=== PATIENT | female | born 1965 | race Caucasian/White ===

== ENCOUNTER 2016-07-23 14:19 | Emergency (ER) | payer BC ==
[~2016-07-23] VITALS: Ht 165.1 cm; Wt 81.6 kg
[2016-07-23] MEDS ORDERED: BUPR300T34 (14:31)
[2016-07-23] MEDS ORDERED: LISI-538 (14:31)
[2016-07-23] MEDS ORDERED: ADDE5TAB5 PO (14:31)
[2016-07-23] MEDS ORDERED: ALPR0.25 (14:31)
[2016-07-23] MEDS ORDERED: PANTOPRAZOLE 40MG INJ (PROTONIX) (C9113) IV ONE (15:00)
[2016-07-23] MEDS ORDERED: NS 1,000 ML IV ONE (15:00)
[2016-07-23] MEDS ORDERED: KETOROLAC 30 MG/ML VIAL (J1885) IV ONE (15:00)
[2016-07-23] MEDS ORDERED: ONDANSETRON 4MG/2ML VIAL (J2405) IV ONE (15:00)
[2016-07-23 15:31] LABS: BASO % 0.2 % (0.0-1.0); EOS # 0.2 K/mm3 (0.0-0.50); EOS % 1.4 % (0.0-3.0); LARGE UNSTAINED CELL # 0.1 K/mm3 (0.0-0.4); LARGE UNSTAINED CELL % 0.5 % (0.0-4.0); LYMPH # 1.4 K/mm3 (1.5-4.5); LYMPH % 9.6 % (24.0-44.0); MEAN CORPUSCULAR HEMOGLOBIN 29.5 pg (27.0-33.0); MEAN CORPUSCULAR VOLUME 84.3 fl (80.0-96.0); MONO # 0.5 K/mm3 (0.0-0.8); MONO % 3.5 % (0.0-5.0); NEUTROPHILS # 11.7 K/mm3 (1.8-7.7); NEUTROPHILS % 84.9 % (36.0-66.0); PLATELET COUNT, AUTOMATED 261 k/mm3 (150-450); RED CELL DISTRIBUTION WIDTH 12.8 % (11.5-14.5); WHITE BLOOD COUNT 13.8 K/mm3 (4.0-10.0)
[2016-07-23 15:48] LABS: ALBUMIN 4.1 GM/DL (3.2-5.2); ALBUMIN/GLOBULIN RATIO 1.08 (1.00-1.93); ALKALINE PHOSPHATASE 102 U/L (45-117); ALT/SGPT 24 U/L (12-78); ANION GAP 9 MEQ/L (8-16); AST/SGOT 10 U/L (15-37); BILIRUBIN,DIRECT 0.1 MG/DL (0.0-0.2); BILIRUBIN,TOTAL 0.5 MG/DL (0.2-1.0); BLOOD UREA NITROGEN 10 MG/DL (7-18); CALCIUM LEVEL 9.3 MG/DL (8.5-10.1); CARBON DIOXIDE LEVEL 25 MEQ/L (21-32); CHLORIDE LEVEL 103 MEQ/L (98-107); CREATININE FOR GFR 0.82 MG/DL (0.55-1.02); GLOMERULAR FILTRATION RATE > 60.0 (>51); GLUCOSE, FASTING 115 MG/DL (70-105); POTASSIUM SERUM 3.7 MEQ/L (3.5-5.1); SODIUM LEVEL 137 MEQ/L (136-145); TOTAL PROTEIN 7.9 GM/DL (6.4-8.2)
[2016-07-23] MEDS ORDERED: ISOVUE-370 76% 100ML VIAL (Q9967) As Ordered ONE (15:57)
[2016-07-23] MEDS ORDERED: CIPROFLOXACIN 400 MG in APPROPRIATE DILUENT 1 EA IV ONE (16:00)
--- NOTE | 2016-07-23 16:27 | REP ---
Clinical: Lower abdominal pain with vomiting. Technique: Axial contrast enhanced images from the lung bases to the pubic symphysis using 100 ml Isovue 370 intravenous contrast material with coronal and sagittal re-formations. Comparison: 10/02/2015. Findings: Mural thickening and pericolonic inflammatory stranding is appreciated involving predominantly the transverse through descending colon and most compatible with an infectious/inflammatory colitis. The small bowel appears normal. There is no evidence for bowel obstruction, free air to suggest perforation, or drainable collection/abscess. Liver, spleen, pancreas, gallbladder, bilateral adrenal glands and kidneys are normal. Pelvis demonstrates partially collapsed normal bladder and age-appropriate uterus/adnexa. No pelvic fluid. No significant adenopathy. Atherosclerotic changes of the aorta noted without aneurysm or dissection. Musculoskeletal structures demonstrate age-related changes. Lung bases clear. Impression: Findings most compatible with infectious/inflammatory colitis involving the transverse through descending colon. Signed by Esdras Colon MD 07/23/2016 04:19 P
[2016-07-23] MEDS ORDERED: BENT20TA PO (16:29)
[2016-07-23] MEDS ORDERED: FLAG500T PO (16:29)
[2016-07-23] MEDS ORDERED: CIPR500T89 PO (16:29)
[2016-07-23] MEDS ORDERED: metroNIDAZOLE (FLAGYL) 500 MG TAB PO ONE (16:30)
[2016-07-23] MEDS ORDERED: DICYCLOMINE 10 MG CAP PO ONE (16:30)
[2016-07-23 17:25] VITALS: BP 145/97
== END 2016-07-23 17:26 | disposition home or self-care (01) ==
LOC: M ED 15:16
DX: K52.9 Noninfective gastroenteritis and colitis, unspecified (principal); K57.30 Diverticulosis of large intestine without perforation or abscess without bleeding; I10 Essential (primary) hypertension; F32.9 Major depressive disorder, single episode, unspecified; F41.9 Anxiety disorder, unspecified; F17.200 Nicotine dependence, unspecified, uncomplicated; Z79.899 Other long term (current) drug therapy; Z91.040 Latex allergy status
CPT/HCPCS: 74177; 80048; 80076; 81001; 83690; 85025; 96374; 96375; 99283; C9113; J0744; J1885; J2405; Q9967

== ENCOUNTER → 2017-09-13 | Outpatient (CLI) | payer BC ==
[2017-09-13 09:44] LABS: BASO % 0.4 % (0.0-1.0); EOS # 0.2 10^3/uL (0.0-0.50); EOS % 2.1 % (0.0-3.0); HEMATOCRIT 41.3 % (36.0-47.0); HEMOGLOBIN 14.4 g/dl (12.0-15.5); IMMATURE GRANULOCYTE % 0.4 % (0-3.0); LYMPH # 1.8 10^3/uL (1.5-4.5); LYMPH % 25.3 % (24.0-44.0); MEAN CORPUSCULAR HEMOGLOBIN 30.2 pg (27.0-33.0); MEAN CORPUSCULAR HGB CONC 34.9 g/dl (32.0-36.5); MEAN CORPUSCULAR VOLUME 86.6 fl (80.0-96.0); MONO # 0.5 10^3/uL (0.0-0.8); MONO % 7.1 % (0.0-5.0); NEUTROPHILS # 4.7 10^3/uL (1.8-7.7); NEUTROPHILS % 64.7 % (36.0-66.0); PLATELET COUNT, AUTOMATED 211 10^3/uL (150-450); RED BLOOD COUNT 4.77 10^6/uL (4.00-5.40); RED CELL DISTRIBUTION WIDTH 12.5 % (11.5-14.5); WHITE BLOOD COUNT 7.2 10^3/uL (4.0-10.0)
[2017-09-13 10:08] LABS: ALBUMIN 3.9 GM/DL (3.2-5.2); ALKALINE PHOSPHATASE 86 U/L (45-117); ALT/SGPT 16 U/L (12-78); ANION GAP 11 MEQ/L (8-16); AST/SGOT 6 U/L (7-37); BILIRUBIN,TOTAL 0.5 MG/DL (0.2-1.0); BLOOD UREA NITROGEN 16 MG/DL (7-18); CALCIUM LEVEL 8.8 MG/DL (8.5-10.1); CARBON DIOXIDE LEVEL 25 MEQ/L (21-32); CHLORIDE LEVEL 108 MEQ/L (98-107); CHOLESTEROL LEVEL 256 MG/DL (<200); CHOLESTEROL RISK RATIO 7.111 (<5); CREATININE FOR GFR 0.87 MG/DL (0.55-1.30); GLOMERULAR FILTRATION RATE > 60.0 (>51); GLUCOSE, FASTING 99 MG/DL (70-100); HDL CHOLESTEROL 36 MG/DL (>40); LDL CHOLESTEROL 185.2 MG/DL (<100); NON-HDL-C 220 MG/DL; SODIUM LEVEL 144 MEQ/L (136-145); TOTAL PROTEIN 6.9 GM/DL (6.4-8.2); TRIGLYCERIDES LEVEL 174 MG/DL (<150)
[2017-09-13 11:18] LABS: ESTIMATED AVERAGE GLUCOSE 123 MG/DL (60-110); HEMOGLOBIN A1c 5.9 %
== END ==
LOC: M LAB 08:31
DX: I10 Essential (primary) hypertension (principal); R73.01 Impaired fasting glucose
CPT/HCPCS: 80053

== ENCOUNTER 2017-12-06 08:19 | Day surgery (SDC) | payer BC ==
[2017-12-06] MEDS ORDERED: PROPOFOL 200 MG/20 ML VIAL As Ordered ×2 (09:15→09:16)
[2017-12-06] MEDS ORDERED: LIDOCAINE 2% INJ 100 MG/5 ML SDV (FOR ANES.) As Ordered (09:16)
[2017-12-06] MEDS: NS 1,000 ML IV (09:30)
== END 2017-12-06 10:48 | disposition home or self-care (01) ==
LOC: M OPP 08:19
DX: Z12.11 Encounter for screening for malignant neoplasm of colon (principal); Z80.0 Family history of malignant neoplasm of digestive organs; D12.5 Benign neoplasm of sigmoid colon; D12.2 Benign neoplasm of ascending colon; K57.30 Diverticulosis of large intestine without perforation or abscess without bleeding; K64.8 Other hemorrhoids; I10 Essential (primary) hypertension; E11.9 Type 2 diabetes mellitus without complications; F41.9 Anxiety disorder, unspecified; F32.9 Major depressive disorder, single episode, unspecified; G43.909 Migraine, unspecified, not intractable, without status migrainosus; Z78.0 Asymptomatic menopausal state; F17.210 Nicotine dependence, cigarettes, uncomplicated; Z88.8 Allergy status to other drugs, medicaments and biological substances; Z79.899 Other long term (current) drug therapy; Z80.3 Family history of malignant neoplasm of breast
CPT/HCPCS: 45385

== ENCOUNTER → 2018-10-11 | Outpatient (CLI) | payer BC ==
[~2018-10-11] MED LIST: ADDE1TAB14 PO; ALPR0.25; BENT20TA PO; BUPR300T92 PO; BUSP10TA PO; CIPR-249 PO; FLAG500T PO; LISI-538 PO
[2018-10-11 09:46] LABS: HEMOGLOBIN A1c 5.6 %
[2018-10-11 09:54] LABS: ALBUMIN 3.9 GM/DL (3.2-5.2); ALT/SGPT 20 U/L (12-78); BILIRUBIN,TOTAL 0.5 MG/DL (0.2-1.0); BLOOD UREA NITROGEN 13 MG/DL (7-18); CALCIUM LEVEL 9.1 MG/DL (8.5-10.1); CARBON DIOXIDE LEVEL 26 MEQ/L (21-32); CHLORIDE LEVEL 109 MEQ/L (98-107); CHOLESTEROL LEVEL 182 MG/DL (<200); CHOLESTEROL RISK RATIO 3.872 (<5); CREATININE FOR GFR 0.83 MG/DL (0.55-1.30); GLOMERULAR FILTRATION RATE > 60.0 (>51); GLUCOSE, FASTING 85 MG/DL (70-100); HDL CHOLESTEROL 47 MG/DL (>40); LDL CHOLESTEROL 101 MG/DL (<100); NON-HDL-C 135 MG/DL; POTASSIUM SERUM 4.1 MEQ/L (3.5-5.1); SODIUM LEVEL 141 MEQ/L (136-145); TRIGLYCERIDES LEVEL 171 MG/DL (<150)
== END ==
LOC: M LAB 08:39
PROVIDERS: ATTEND Family Medicine
DX: I10 Essential (primary) hypertension (principal)

== ENCOUNTER → 2020-04-14 | Outpatient (CLI) | payer BC ==
[~2020-04-14] MED LIST changes: -LISI-538 PO; +LISI20TA33 PO
[2020-04-14 09:43] LABS: HEMATOCRIT 43.8 % (36.0-47.0); MEAN CORPUSCULAR HEMOGLOBIN 30.9 pg (27.0-33.0); MEAN CORPUSCULAR HGB CONC 34.2 g/dl (32.0-36.5); MEAN CORPUSCULAR VOLUME 90.3 fl (80.0-96.0); PLATELET COUNT, AUTOMATED 239 10^3/uL (150-450); RED BLOOD COUNT 4.85 10^6/uL (4.00-5.40)
[2020-04-14 10:18] LABS: HEMOGLOBIN A1c 5.3 %
[2020-04-14 10:25] LABS: ALBUMIN 4.1 GM/DL (3.2-5.2); ALT/SGPT 27 U/L (12-78); BILIRUBIN,TOTAL 0.7 MG/DL (0.2-1.0); BLOOD UREA NITROGEN 16 MG/DL (7-18); CALCIUM LEVEL 9.5 MG/DL (8.5-10.1); CARBON DIOXIDE LEVEL 28 MEQ/L (21-32); CHLORIDE LEVEL 104 MEQ/L (98-107); CHOLESTEROL LEVEL 244 MG/DL (<200); CHOLESTEROL RISK RATIO 5.951 (<5); CREATININE FOR GFR 0.96 MG/DL (0.55-1.30); GLOMERULAR FILTRATION RATE > 60.0 (>51); GLUCOSE, FASTING 95 MG/DL (70-100); HDL CHOLESTEROL 41 MG/DL (>40); LDL CHOLESTEROL 156 MG/DL (<100); NON-HDL-C 203 MG/DL; SODIUM LEVEL 141 MEQ/L (136-145); TOTAL PROTEIN 7.2 GM/DL (6.4-8.2); TRIGLYCERIDES LEVEL 237 MG/DL (<150)
== END ==
LOC: M WUC 08:28
PROVIDERS: ATTEND Family Medicine
DX: I10 Essential (primary) hypertension (principal); R73.01 Impaired fasting glucose

== ENCOUNTER → 2021-11-08 | Outpatient (CLI) | payer BC ==
[2021-11-08 08:12] LABS: HEMATOCRIT 41.8 % (36.0-47.0); HEMOGLOBIN 14.6 g/dl (12.0-15.5); MEAN CORPUSCULAR HEMOGLOBIN 31.1 pg (27.0-33.0); MEAN CORPUSCULAR HGB CONC 34.9 g/dl (32.0-36.5); MEAN CORPUSCULAR VOLUME 89.1 fl (80.0-96.0); PLATELET COUNT, AUTOMATED 200 10^3/uL (150-450); RED BLOOD COUNT 4.69 10^6/uL (4.00-5.40)
[2021-11-08 08:47] LABS: ALBUMIN 4.1 GM/DL (3.2-5.2); ALT/SGPT 22 U/L (12-78); BILIRUBIN,TOTAL 0.7 MG/DL (0.2-1.0); BLOOD UREA NITROGEN 14 MG/DL (7-18); CALCIUM LEVEL 9.6 MG/DL (8.5-10.1); CARBON DIOXIDE LEVEL 28 MEQ/L (21-32); CHLORIDE LEVEL 105 MEQ/L (98-107); CHOLESTEROL LEVEL 242 MG/DL (<200); CHOLESTEROL RISK RATIO 4.172 (<5); CREATININE FOR GFR 0.89 MG/DL (0.55-1.30); GLOMERULAR FILTRATION RATE > 60.0 (>51); GLUCOSE, FASTING 102 MG/DL (70-100); HDL CHOLESTEROL 58 MG/DL (>40); LDL CHOLESTEROL 155 MG/DL (<100); NON-HDL-C 184 MG/DL; POTASSIUM SERUM 4.1 MEQ/L (3.5-5.1); SODIUM LEVEL 138 MEQ/L (136-145); TRIGLYCERIDES LEVEL 144 MG/DL (<150)
[2021-11-08 09:00] LABS: HEMOGLOBIN A1c 5.3 %
== END ==
LOC: M LAB 07:47
PROVIDERS: ATTEND Family Medicine
DX: I10 Essential (primary) hypertension (principal); R73.01 Impaired fasting glucose

== ENCOUNTER → 2022-05-01 | Outpatient (CLI) | payer BC, OTHER | LOC: M WHC 08:35 | PROVIDERS: ATTEND Family Medicine | DX: Z12.31 Encounter for screening mammogram for malignant neoplasm of breast (principal); R92.2 Inconclusive mammogram ==

== ENCOUNTER → 2022-05-17 | Outpatient (CLI) | payer OTHER | LOC: M WHC 08:55 | PROVIDERS: ATTEND Family Medicine | DX: R92.2 Inconclusive mammogram (principal); N60.11 Diffuse cystic mastopathy of right breast | CPT/HCPCS: 76642; 77065; G0279 ==

== ENCOUNTER → 2022-11-03 | Outpatient (CLI) | payer OTHER ==
[2022-11-03 09:03] LABS: BASO % 0.5 % (0.0-1.0); EOS # 0.1 10^3/uL (0.0-0.5); EOS % 1.7 % (0.0-3.0); HEMATOCRIT 40.7 % (36.0-47.0); HEMOGLOBIN 13.9 g/dl (12.0-15.5); LYMPH # 1.8 10^3/uL (1.5-5.0); LYMPH % 27.3 % (24.0-44.0); MEAN CORPUSCULAR HEMOGLOBIN 30.3 pg (27.0-33.0); MEAN CORPUSCULAR HGB CONC 34.2 g/dl (32.0-36.5); MEAN CORPUSCULAR VOLUME 88.9 fl (80.0-96.0); MONO # 0.6 10^3/uL (0.0-0.8); MONO % 8.4 % (2.0-8.0); NEUTROPHILS # 4.1 10^3/uL (1.5-8.5); NEUTROPHILS % 61.9 % (36.0-66.0); PLATELET COUNT, AUTOMATED 183 10^3/uL (150-450); RED BLOOD COUNT 4.58 10^6/uL (4.00-5.40); WHITE BLOOD COUNT 6.6 10^3/uL (4.0-10.0)
[2022-11-03 09:21] LABS: HEMOGLOBIN A1c 5.3 % (4.0-6.0)
[2022-11-03 09:33] LABS: ALKALINE PHOSPHATASE 94 U/L (46-116); ALT/SGPT 27 U/L (7.0-40); AST/SGOT 13 U/L (<34); BILIRUBIN,TOTAL 0.6 MG/DL (0.3-1.2); BLOOD UREA NITROGEN 18 MG/DL (9-23); CALCIUM LEVEL 9.1 MG/DL (8.5-10.1); CARBON DIOXIDE LEVEL 26 MMOL/L (20-31); CHLORIDE LEVEL 107 MMOL/L (98-107); CHOLESTEROL LEVEL 181 MG/DL (<200); CHOLESTEROL RISK RATIO 4.46 (<5); CREATININE FOR GFR 0.85 MG/DL (0.55-1.30); GLOMERULAR FILTRATION RATE > 60.0 (>51); GLUCOSE, FASTING 96 MG/DL (60-100); HDL CHOLESTEROL 40.5 MG/DL (>40); LDL CHOLESTEROL 118.1 MG/DL (<100); NON-HDL-C 140.5 MG/DL; POTASSIUM SERUM 3.9 MMOL/L (3.5-5.1); SODIUM LEVEL 142 MMOL/L (136-145); TOTAL PROTEIN 6.6 G/DL (5.7-8.2); TRIGLYCERIDES LEVEL 112 MG/DL (<150)
== END ==
LOC: M LAB 08:12
PROVIDERS: ATTEND Family Medicine
DX: I10 Essential (primary) hypertension (principal); R73.01 Impaired fasting glucose

== ENCOUNTER → 2022-11-21 | Outpatient (CLI) | payer OTHER | LOC: M WHC 07:31 | PROVIDERS: ATTEND Family Medicine | DX: R92.2 Inconclusive mammogram (principal); N60.11 Diffuse cystic mastopathy of right breast ==

== ENCOUNTER 2023-05-17 09:09 | Day surgery (SDC) | payer OTHER ==
[~2023-05-17] VITALS: Ht 165.1 cm; Wt 80.2 kg
[2023-05-17] MEDS: NS 1,000 ML IV ONE (06:00)
[~2023-05-17 09:09] MED LIST changes: +ALPR0.5T3 PO; +ATOR1TAB21 PO; +ESZO1TAB4 PO; +LISI20TA35 PO; +LUNE2TAB28 PO; +XANA0.5T PO; +[UNRECOGNIZED DRUG - OTHER]
[2023-05-17] MEDS ORDERED: propofoL 200 MG/20 ML VIAL As Ordered ONE (09:45)
[2023-05-17 10:11] VITALS: TEMP 97.3
[2023-05-17 10:25] VITALS: BP 137/78; O2SAT 96
== END 2023-05-17 10:32 | disposition home or self-care (01) ==
LOC: M OPP 09:09
PROVIDERS: ATTEND Internal Medicine Gastroenterology
DX: Z12.11 Encounter for screening for malignant neoplasm of colon (principal); Z86.010 Personal history of colon polyps; Z80.0 Family history of malignant neoplasm of digestive organs; K64.8 Other hemorrhoids; K57.30 Diverticulosis of large intestine without perforation or abscess without bleeding; Z87.891 Personal history of nicotine dependence; Z79.02 Long term (current) use of antithrombotics/antiplatelets; Z79.52 Long term (current) use of systemic steroids; Z79.899 Other long term (current) drug therapy; Z88.8 Allergy status to other drugs, medicaments and biological substances

== ENCOUNTER → 2024-01-14 | Outpatient (CLI) | payer OTHER ==
[~2024-01-14] MED LIST changes: +BUPR-597 PO; -BUPR300T92 PO
[2024-01-14 08:55] LABS: BASO % 0.5 % (0.0-1.0); EOS # 0.1 10^3/uL (0.0-0.5); EOS % 2.4 % (0.0-3.0); HEMATOCRIT 37.6 % (36.0-47.0); HEMOGLOBIN 13.1 g/dl (12.0-15.5); LYMPH # 1.3 10^3/uL (1.5-5.0); LYMPH % 23.1 % (24.0-44.0); MEAN CORPUSCULAR HEMOGLOBIN 30.6 pg (27.0-33.0); MEAN CORPUSCULAR HGB CONC 34.8 g/dl (32.0-36.5); MEAN CORPUSCULAR VOLUME 87.9 fl (80.0-96.0); MONO # 0.6 10^3/uL (0.0-0.8); NEUTROPHILS # 3.5 10^3/uL (1.5-8.5); NEUTROPHILS % 63.8 % (36.0-66.0); PLATELET COUNT, AUTOMATED 177 10^3/uL (150-450); RED BLOOD COUNT 4.28 10^6/uL (4.00-5.40); WHITE BLOOD COUNT 5.5 10^3/uL (4.0-10.0)
[2024-01-14 09:20] LABS: ALBUMIN 4.1 G/DL (3.2-5.2); ALKALINE PHOSPHATASE 76 U/L (35-104); ALT/SGPT 34 U/L (7.0-40); AST/SGOT 17 U/L (<34); BILIRUBIN,TOTAL 0.8 MG/DL (0.3-1.2); BLOOD UREA NITROGEN 17 MG/DL (9-23); CALCIUM LEVEL 9.6 MG/DL (8.3-10.6); CARBON DIOXIDE LEVEL 30 MMOL/L (20-31); CHLORIDE LEVEL 107 MMOL/L (98-107); CHOLESTEROL LEVEL 164 MG/DL (<200); CREATININE FOR GFR 0.93 MG/DL (0.55-1.30); GLOMERULAR FILTRATION RATE > 60.0 (>45); GLUCOSE, FASTING 92 MG/DL (74-106); HDL CHOLESTEROL 49.6 MG/DL (>40); LDL CHOLESTEROL 94.8 MG/DL (<100); NON-HDL-C 114.4 MG/DL; POTASSIUM SERUM 3.9 MMOL/L (3.5-5.1); SODIUM LEVEL 141 MMOL/L (136-145); TOTAL PROTEIN 6.9 G/DL (5.7-8.2); TRIGLYCERIDES LEVEL 98 MG/DL (<150)
[2024-01-14 09:28] LABS: HEMOGLOBIN A1c 5.1 % (4.0-6.0)
== END ==
LOC: M LAB 08:14
PROVIDERS: ATTEND Family Medicine
DX: I10 Essential (primary) hypertension (principal); R73.01 Impaired fasting glucose

== ENCOUNTER → 2024-06-16 | Outpatient (CLI) | payer OTHER | LOC: M WUC 09:44 | PROVIDERS: ATTEND Physician Assistant Surgical | DX: M25.541 Pain in joints of right hand (principal); S62.611K Displaced fracture of proximal phalanx of left index finger, subsequent encounter for fracture with nonunion; M19.041 Primary osteoarthritis, right hand ==